=== PATIENT | female | born 1985 | race Caucasian/White ===

== ENCOUNTER 2018-09-13 09:41 | Emergency (ER) | payer OTHER, BC ==
[~2018-09-13] VITALS: Ht 170.2 cm; Wt 68.2 kg
[2018-09-13 09:49] VITALS: BP 118/82
[2018-09-13] MEDS ORDERED: ketorolac trometh inj. 60 MG/2 ML VIAL IM ONE (10:20)
[2018-09-13] MEDS ORDERED: ACET-3067 PO (10:21)
[2018-09-13] MEDS ORDERED: CYCL-1 PO (10:21)
== END 2018-09-13 11:12 | disposition home or self-care (01) ==
LOC: ER 09:41
DX: S13.9XXA Sprain of joints and ligaments of unspecified parts of neck, initial encounter (principal); Z88.1 Allergy status to other antibiotic agents; Z88.0 Allergy status to penicillin; V49.9XXA Car occupant (driver) (passenger) injured in unspecified traffic accident, initial encounter; Y93.89 Activity, other specified; Y92.488 Other paved roadways as the place of occurrence of the external cause; Y99.8 Other external cause status
CPT/HCPCS: 96372; 99283; J1885

== ENCOUNTER 2018-09-27 09:07 | Outpatient (CLI) | payer BC, OTHER ==
[~2018-09-27 09:07] MED LIST: CYCL-1 PO
[2018-09-27 10:28] LABS: BASOPHILS % (AUTO) 0.3 % (0-1); EOSINOPHILS # (AUTO) 0.1 X10'3 (0-0.9); EOSINOPHILS % (AUTO) 2.1 % (0-6); HEMATOCRIT 39.4 % (35.0-45.0); HEMOGLOBIN 13.4 g/dl (12.0-16.0); LYMPHOCYTES # (AUTO) 1.5 X10'3 (1.1-4.8); LYMPHOCYTES % (AUTO) 23.1 % (21-51); MEAN CORPUSCULAR HEMOGLOBIN 32.4 PG (27.0-31.0); MEAN CORPUSCULAR VOLUME 95.2 FL (78-98); MEAN PLATELET VOLUME 8.3 FL (7.4-10.4); MONOCYTES # (AUTO) 0.4 X10'3 (0-0.9); MONOCYTES % (AUTO) 5.7 % (2-12); NEUTROPHILS # (AUTO) 4.4 X10'3 (1.8-7.7); NEUTROPHILS % (AUTO) 68.8 % (42-75); PLATELET COUNT 216 X10'3 (140-440); RED BLOOD COUNT 4.14 X10'6 (4.20-5.60); WHITE BLOOD COUNT 6.4 X10'3 (4.5-11.0)
[2018-09-27 10:46] LABS: ALANINE AMINOTRANSFERASE 24 U/L (12-78); ALBUMIN/GLOBULIN RATIO 1.1 (1.1-1.5); ALKALINE PHOSPHATASE 51 IU/L (46-116); ANION GAP 7 (8-16); ASPARTATE AMINO TRANSFERASE 17 U/L (10-37); BILIRUBIN,TOTAL 0.6 MG/DL (0.1-1.0); BLOOD UREA NITROGEN 12 MG/DL (7-18); CALCIUM 8.8 MG/DL (8.5-10.1); CHLORIDE 106 MMOL/L (99-107); CHOL/HDL RATIO 2.5 (0.00-4.99); CHOLESTEROL 155 MG/DL (0-200); GLUCOSE 91 MG/DL (70-104); HDL CHOLESTEROL 62 MG/DL (35-60); LDL CHOLESTEROL 79 MG/DL (50-100); POTASSIUM 3.6 MMOL/L (3.5-5.1); SODIUM 140 MMOL/L (135-145); TOTAL CARBON DIOXIDE 26.7 MMOL/L (24-32); TOTAL PROTEIN 7.6 G/DL (6.4-8.2); TRIGLYCERIDES 67 MG/DL (20-135); eGFR 82 ML/MIN
== END 2018-09-27 23:59 | disposition home or self-care (01) ==
LOC: RAD 09:07
PROVIDERS: ATTEND Family Medicine
DX: M54.6 Pain in thoracic spine (principal); G43.909 Migraine, unspecified, not intractable, without status migrainosus; M41.82 Other forms of scoliosis, cervical region; Z76.89 Persons encountering health services in other specified circumstances; V89.2XXD Person injured in unspecified motor-vehicle accident, traffic, subsequent encounter
CPT/HCPCS: 36415; 72050; 72074; 80053; 80061; 84439; 84443; 85025

== ENCOUNTER → 2019-03-09 | Emergency (ER) | payer OTHER ==
[~2019-03-09] VITALS: Ht 167.6 cm; Wt 68.2 kg
[~2019-03-09] MED LIST changes: +LIDOcaine 1% 30ml preserv. free vial IJ STA; +METH500T6 PO; +ketorolac trometh inj. 60 MG/2 ML VIAL IM ONE
[2019-03-09 02:14] VITALS: BP 123/69
== END | disposition home or self-care (01) ==
LOC: EEVIPCON 00:18 → ER 00:18
DX: M54.2 Cervicalgia (principal); M62.838 Other muscle spasm; Z88.0 Allergy status to penicillin; Z88.1 Allergy status to other antibiotic agents; Z79.899 Other long term (current) drug therapy
CPT/HCPCS: 20552; 96372; 99284; J1885; J2001

== ENCOUNTER 2019-05-02 23:47 | Emergency (ER) | payer OTHER ==
[~2019-05-02] VITALS: Ht 167.6 cm; Wt 72.7 kg
[~2019-05-02 23:47] MED LIST changes: -LIDOcaine 1% 30ml preserv. free vial IJ STA; -ketorolac trometh inj. 60 MG/2 ML VIAL IM ONE
[2019-05-03] MEDS ORDERED: ketorolac trometh inj. 60 MG/2 ML VIAL IM ONE
[2019-05-03 00:30] VITALS: BP 130/94
== END 2019-05-03 00:31 | disposition home or self-care (01) ==
LOC: ER 23:48
DX: M54.6 Pain in thoracic spine (principal); G89.29 Other chronic pain; Z88.1 Allergy status to other antibiotic agents; Z88.0 Allergy status to penicillin; Z79.899 Other long term (current) drug therapy
CPT/HCPCS: 96372; 99283; J1885

== ENCOUNTER 2020-04-03 00:25 | Emergency (ER) | payer BC, OTHER ==
[~2020-04-03] VITALS: Ht 167.6 cm; Wt 70.0 kg
[2020-04-03 00:27] VITALS: BP 143/85
[2020-04-03] MEDS ORDERED: LIDOcaine 1% 30ml preserv. free vial IJ STA (00:35)
[2020-04-03] MEDS ORDERED: ketorolac tromethamine 15mg/ml inj. IM ONE (00:35)
== END 2020-04-03 01:01 | disposition home or self-care (01) ==
LOC: ER 00:25
DX: M25.512 Pain in left shoulder (principal); G89.29 Other chronic pain; Z88.8 Allergy status to other drugs, medicaments and biological substances; Z88.0 Allergy status to penicillin; Z79.899 Other long term (current) drug therapy
CPT/HCPCS: 20552; 96372; 99284; J1885

== ENCOUNTER 2020-04-29 06:39 | Outpatient (CLI) | payer BC ==
[2020-04-29 07:19] LABS: CLARITY,URINE SLIGHTLY CLOUDY (Clear); COLOR,URINE YELLOW (Yellow); GLUCOSE, URINE NEGATIVE (Neg); KETONES,URINE >=80 mg/dl (Neg); LEUKOCYTE ESTERASE ,URINE NEGATIVE (Neg); NITRITES, URINE NEGATIVE (Neg); OCCULT BLOOD,URINE SMALL (Neg); PH,URINE 5.5 (4.8-8.0); PROTEIN,URINE NEGATIVE (Neg); UROBILINOGEN,URINE 0.2 E.U/dL (0.2-1.0)
[2020-04-29 07:22] LABS: UA COLLECTION TYPE CLN CATCH MIDSTREAM
[2020-04-29 07:24] LABS: BASOPHILS % (AUTO) 0.4 % (0-1); EOSINOPHILS # (AUTO) 0.1 X10'3 (0-0.9); EOSINOPHILS % (AUTO) 1.5 % (0-6); HEMATOCRIT 37.7 % (35.0-45.0); LYMPHOCYTES # (AUTO) 1.6 X10'3 (1.1-4.8); LYMPHOCYTES % (AUTO) 22.5 % (21-51); MEAN CORPUSCULAR HEMOGLOBIN 32.8 PG (27.0-31.0); MEAN CORPUSCULAR HGB CONC 34.6 g/dL (33.0-36.5); MEAN CORPUSCULAR VOLUME 94.8 FL (78-98); MEAN PLATELET VOLUME 8.5 FL (7.4-10.4); MONOCYTES # (AUTO) 0.4 X10'3 (0-0.9); MONOCYTES % (AUTO) 5.7 % (2-12); NEUTROPHILS # (AUTO) 4.9 X10'3 (1.8-7.7); NEUTROPHILS % (AUTO) 69.9 % (42-75); PLATELET COUNT 222 X10'3 (140-440); RED BLOOD COUNT 3.97 X10'6 (4.20-5.60); RED CELL DISTRIBUTION WIDTH 12.2 % (11.5-14.5)
[2020-04-29 07:25] LABS: MUCUS STRANDS MODERATE /LPF (Neg); SQUAMOUS EPITHELIAL CELL,UR MANY /LPF (FEW)
[2020-04-29 07:26] LABS: BACTERIA,URINE 2+ /HPF (Neg); RBC,URINE 0-2 /HPF (0-2); WBC,URINE 0-4 /HPF (0-4)
[2020-04-29 07:46] LABS: ALANINE AMINOTRANSFERASE 27 U/L (12-78); ALBUMIN 4.1 G/DL (3.4-5.0); ALBUMIN/GLOBULIN RATIO 1.1 (1.1-1.5); ALKALINE PHOSPHATASE 50 IU/L (46-116); ANION GAP 10 (8-16); ASPARTATE AMINO TRANSFERASE 17 U/L (10-37); BILIRUBIN,TOTAL 0.6 MG/DL (0.1-1.0); BLOOD UREA NITROGEN 12 MG/DL (7-18); BUN/CREATININE RATIO 16.4 (6.6-38.0); CALCIUM 9.1 MG/DL (8.5-10.1); CHLORIDE 107 MMOL/L (99-107); CHOL/HDL RATIO 2.2 (0.00-4.99); CHOLESTEROL 140 MG/DL (0-200); CREATININE 0.73 MG/DL (0.40-0.90); GLUCOSE 86 MG/DL (70-104); HDL CHOLESTEROL 63 MG/DL (35-60); LDL CHOLESTEROL 67 MG/DL (50-100); POTASSIUM 3.6 MMOL/L (3.5-5.1); SODIUM 142 MMOL/L (135-145); TOTAL CARBON DIOXIDE 24.6 MMOL/L (24-32); TOTAL PROTEIN 7.8 G/DL (6.4-8.2); TRIGLYCERIDES 41 MG/DL (20-135); eGFR 90 ML/MIN
== END 2020-04-29 23:59 | disposition home or self-care (01) ==
LOC: LAB 06:39
PROVIDERS: ATTEND Family Medicine
DX: G43.909 Migraine, unspecified, not intractable, without status migrainosus (principal); M54.2 Cervicalgia
CPT/HCPCS: 36415; 80053; 80061; 81001; 84439; 84443; 85025

== ENCOUNTER 2021-06-20 04:13 | Emergency (ER) | payer BC ==
[~2021-06-20] VITALS: Ht 167.6 cm; Wt 69.8 kg
[~2021-06-20 04:13] MED LIST changes: +METH-797 PO; -METH500T6 PO
[2021-06-20 04:20] VITALS: BP 111/71
[2021-06-20] MEDS ORDERED: CARI-75 PO (04:39)
[2021-06-20] MEDS ORDERED: ketorolac trometh inj. 60 MG/2 ML VIAL IM ONE (04:40)
== END 2021-06-20 05:05 | disposition home or self-care (01) ==
LOC: ER 04:13
DX: M25.512 Pain in left shoulder (principal); G89.29 Other chronic pain; Z88.0 Allergy status to penicillin; Z88.1 Allergy status to other antibiotic agents; Z79.899 Other long term (current) drug therapy
CPT/HCPCS: 96372; 99283; J1885

== ENCOUNTER 2021-06-23 09:36 | Outpatient (CLI) | payer BC ==
[~2021-06-23 09:36] MED LIST changes: +CARI-75 PO
== END 2021-06-23 23:59 | disposition home or self-care (01) ==
LOC: RAD 09:36
PROVIDERS: ATTEND Family Medicine
DX: M25.512 Pain in left shoulder (principal)
CPT/HCPCS: 73030

== ENCOUNTER 2021-10-15 09:39 | Outpatient (CLI) | payer BC ==
[2021-10-15 10:10] LABS: CLARITY,URINE CLEAR (Clear); GLUCOSE, URINE NEGATIVE (Neg); KETONES,URINE NEGATIVE (Neg); LEUKOCYTE ESTERASE ,URINE NEGATIVE (Neg); NITRITES, URINE NEGATIVE (Neg); OCCULT BLOOD,URINE MODERATE (Neg); PROTEIN,URINE NEGATIVE (Neg); UROBILINOGEN,URINE 0.2 E.U/dL (0.2-1.0)
[2021-10-15 10:11] LABS: COLOR,URINE STRAW (Yellow); UA COLLECTION TYPE CLN CATCH MIDSTREAM
[2021-10-15 10:16] LABS: BASOPHILS % (AUTO) 0.4 % (0-1); EOSINOPHILS # (AUTO) 0.2 X10'3 (0-0.9); EOSINOPHILS % (AUTO) 2.8 % (0-6); HEMOGLOBIN 14.3 g/dl (12.0-16.0); LYMPHOCYTES # (AUTO) 1.7 X10'3 (1.1-4.8); LYMPHOCYTES % (AUTO) 27.2 % (21-51); MEAN CORPUSCULAR HEMOGLOBIN 33.2 PG (27.0-31.0); MEAN CORPUSCULAR HGB CONC 34.8 g/dL (33.0-36.5); MEAN CORPUSCULAR VOLUME 95.4 FL (78-98); MEAN PLATELET VOLUME 7.7 FL (7.4-10.4); MONOCYTES # (AUTO) 0.4 X10'3 (0-0.9); MONOCYTES % (AUTO) 6.5 % (2-12); NEUTROPHILS # (AUTO) 3.9 X10'3 (1.8-7.7); NEUTROPHILS % (AUTO) 63.1 % (42-75); PLATELET COUNT 225 X10'3 (140-440); RED BLOOD COUNT 4.29 X10'6 (4.20-5.60); WHITE BLOOD COUNT 6.2 X10'3 (4.5-11.0)
[2021-10-15 10:25] LABS: BACTERIA,URINE 3+ /HPF (Neg); SQUAMOUS EPITHELIAL CELL,UR MANY /LPF (FEW)
[2021-10-15 10:34] LABS: ALANINE AMINOTRANSFERASE 32 U/L (12-78); ALBUMIN 4.3 G/DL (3.4-5.0); ALBUMIN/GLOBULIN RATIO 1.1 (1.1-1.5); ALKALINE PHOSPHATASE 57 IU/L (46-116); ANION GAP 8 (8-16); ASPARTATE AMINO TRANSFERASE 18 U/L (10-37); BLOOD UREA NITROGEN 15 MG/DL (7-18); BUN/CREATININE RATIO 19.2 (6.6-38.0); CHLORIDE 106 MMOL/L (99-107); CREATININE 0.78 MG/DL (0.40-0.90); GLUCOSE 97 MG/DL (70-104); POTASSIUM 3.7 MMOL/L (3.5-5.1); SODIUM 140 MMOL/L (135-145); TOTAL CARBON DIOXIDE 26.2 MMOL/L (24-32); TOTAL PROTEIN 8.1 G/DL (6.4-8.2); eGFR 83 ML/MIN
[2021-10-15 10:53] LABS: HCG SERUM QL NEGATIVE
== END 2021-10-15 23:59 | disposition home or self-care (01) ==
LOC: LAB 09:39
PROVIDERS: ATTEND Physician Assistant
DX: R42 Dizziness and giddiness (principal); R11.0 Nausea
CPT/HCPCS: 36415; 80053; 81001; 84436; 84443; 84703; 85025

== ENCOUNTER 2022-04-13 12:29 | Emergency (ER) | payer BC ==
[~2022-04-13] VITALS: Ht 167.6 cm; Wt 80.0 kg
[2022-04-13 12:53] LABS: BASOPHILS % (AUTO) 0.2 % (0-1); EOSINOPHILS # (AUTO) 0.1 X10'3 (0-0.9); EOSINOPHILS % (AUTO) 0.6 % (0-6); HEMATOCRIT 36.1 % (35.0-45.0); HEMOGLOBIN 12.6 g/dl (12.0-16.0); LYMPHOCYTES # (AUTO) 0.3 X10'3 (1.1-4.8); LYMPHOCYTES % (AUTO) 2.2 % (21-51); MEAN CORPUSCULAR HEMOGLOBIN 33.4 PG (27.0-31.0); MEAN CORPUSCULAR VOLUME 95.4 FL (78-98); MEAN PLATELET VOLUME 7.9 FL (7.4-10.4); MONOCYTES # (AUTO) 0.4 X10'3 (0-0.9); NEUTROPHILS # (AUTO) 11.6 X10'3 (1.8-7.7); PLATELET COUNT 189 X10'3 (140-440); RED BLOOD COUNT 3.78 X10'6 (4.20-5.60); RED CELL DISTRIBUTION WIDTH 12.4 % (11.5-14.5); WHITE BLOOD COUNT 12.4 X10'3 (4.5-11.0)
[2022-04-13] MEDS ORDERED: normal saline 1000ML IV soln IVB ONE (13:10)
[2022-04-13 13:15] LABS: ALANINE AMINOTRANSFERASE 25 U/L (12-78); ALBUMIN/GLOBULIN RATIO 0.8 (1.1-1.5); ALKALINE PHOSPHATASE 59 IU/L (46-116); ANION GAP 7 (8-16); ASPARTATE AMINO TRANSFERASE 22 U/L (10-37); BILIRUBIN,TOTAL 0.6 MG/DL (0.1-1.0); BLOOD UREA NITROGEN 11 MG/DL (7-18); BUN/CREATININE RATIO 15.9 (6.6-38.0); CALCIUM 9.1 MG/DL (8.5-10.1); CHLORIDE 103 MMOL/L (99-107); CREATININE 0.69 MG/DL (0.40-0.90); GLUCOSE 123 MG/DL (70-104); POTASSIUM 3.7 MMOL/L (3.5-5.1); SODIUM 135 MMOL/L (135-145); TOTAL CARBON DIOXIDE 24.6 MMOL/L (24-32); TOTAL PROTEIN 6.8 G/DL (6.4-8.2); eGFR > 90 ML/MIN
[2022-04-13 13:24] LABS: CLARITY,URINE SLIGHTLY CLOUDY (Clear); COLOR,URINE YELLOW (Yellow); GLUCOSE, URINE NEGATIVE (Neg); KETONES,URINE NEGATIVE (Neg); LEUKOCYTE ESTERASE ,URINE TRACE (Neg); NITRITES, URINE NEGATIVE (Neg); OCCULT BLOOD,URINE NEGATIVE (Neg); PROTEIN,URINE NEGATIVE (Neg); URINE HCG POSITIVE (NEG); UROBILINOGEN,URINE 0.2 E.U/dL (0.2-1.0)
[2022-04-13 13:26] LABS: UA COLLECTION TYPE CLN CATCH MIDSTREAM
[2022-04-13 13:33] LABS: RBC,URINE 0-2 /HPF (0-2)
[2022-04-13 13:34] LABS: BACTERIA,URINE 3+ /HPF (Neg); HYALINE CASTS 0-3 /LPF (NEGATIVE); MUCUS STRANDS NONE SEEN /LPF (Neg); SQUAMOUS EPITHELIAL CELL,UR MANY /LPF (FEW)
[2022-04-13] MEDS ORDERED: ONDA4TAB12 PO (15:17)
[2022-04-13 15:45] VITALS: BP 100/67
== END 2022-04-13 15:47 | disposition home or self-care (01) ==
LOC: ER 12:30
DX: O26.892 Other specified pregnancy related conditions, second trimester (principal); Z20.822 Contact with and (suspected) exposure to COVID-19; O23.42 Unspecified infection of urinary tract in pregnancy, second trimester; Z3A.20 20 weeks gestation of pregnancy; J06.9 Acute upper respiratory infection, unspecified; R19.7 Diarrhea, unspecified; R11.0 Nausea; G89.29 Other chronic pain; M54.50 Low back pain, unspecified; Z88.0 Allergy status to penicillin; Z88.1 Allergy status to other antibiotic agents
CPT/HCPCS: 36415; 80053; 81001; 81025; 85025; 87502; 87503; 87635; 96360; 99283; C9803; J7030

== ENCOUNTER 2022-06-05 19:11 | Emergency (ER) | payer BC ==
[~2022-06-05] VITALS: Ht 167.6 cm; Wt 82.7 kg
[~2022-06-05 19:11] MED LIST changes: +ONDA4TAB12 PO
--- NOTE | 2022-06-05 19:46 | NUR ---
CHARGE NURSE NOTIFIED OF GENERAL ASSESSMENT FOR REVIEW.
[2022-06-05 20:33] LABS: COLOR,URINE YELLOW (Yellow); GLUCOSE, URINE NEGATIVE (Neg); KETONES,URINE NEGATIVE (Neg); LEUKOCYTE ESTERASE ,URINE SMALL (Neg); NITRITES, URINE NEGATIVE (Neg); OCCULT BLOOD,URINE TRACE-INTACT (Neg); PH,URINE 6.5 (4.8-8.0); PROTEIN,URINE NEGATIVE (Neg); UROBILINOGEN,URINE 0.2 E.U/dL (0.2-1.0)
[2022-06-05 20:38] LABS: UA COLLECTION TYPE CLN CATCH MIDSTREAM
[2022-06-05 20:39] LABS: BACTERIA,URINE 2+ /HPF (Neg); CLARITY,URINE SLIGHTLY CLOUDY (Clear); RBC,URINE NONE SEEN /HPF (0-2); SQUAMOUS EPITHELIAL CELL,UR MODERATE /LPF (FEW)
[2022-06-05 21:27] VITALS: BP 114/69
== END 2022-06-05 21:32 | disposition home or self-care (01) ==
LOC: ER 19:12
DX: O46.92 Antepartum hemorrhage, unspecified, second trimester (principal); G89.29 Other chronic pain; Z3A.28 28 weeks gestation of pregnancy; Z87.440 Personal history of urinary (tract) infections; Z88.0 Allergy status to penicillin; Z88.8 Allergy status to other drugs, medicaments and biological substances; Z79.899 Other long term (current) drug therapy
CPT/HCPCS: 76805; 81001; 87088; 99284

== ENCOUNTER 2025-05-31 14:24 | Emergency (ER) | payer BC ==
[~2025-05-31] VITALS: Ht 167.6 cm; Wt 79.0 kg
[~2025-05-31 14:24] MED LIST changes: +ONDA-243 PO; -ONDA4TAB12 PO
[2025-05-31 14:25] VITALS: BP 139/80; PULSE 59; O2SAT 100
[2025-05-31] MEDS: ondansetron 4mg rapidly disintigrating tab PO ONE (15:40)
[2025-05-31 15:42] VITALS: RESP 16
[2025-05-31] MEDS: ketorolac trometh 15mg/ml vial 15 MG/ML ML IM ONE (15:42)
--- NOTE | 2025-05-31 16:56 | Physician Documentation ---
History of Present Illness ~ Chief Complaint: Headache Stated Complaint: HEADACHE Time Seen by MD: 14:39 OK to notify your PCP?: Yes Primary Medical Doctor: Cole De Jesus Source: patient Mode of Arrival: POV HPI Reports having a migraine with nausea for the past 4 hours. She reports that this pain is in her forehead which is her usual location. She has a history of migraines and usually is able to take Tylenol and/or ibuprofen as soon as the headache starts in his usually able to terminate this headache. Unfortunately she was out shopping today when the headache came on and she took Tylenol but thinks it was too late. She reports having some photophobia, no vomiting. This is a feels like her usual migraine. Medication Reconciliation Allergies: Coded Allergies: Cephalosporins (Verified Allergy, Unknown, 09/13/18) Penicillins (Verified Allergy, Unknown, 09/13/18) nitrofurantoin (Verified Allergy, Unknown, 06/05/22) Uncoded Allergies: ZPAK (Allergy, Intermediate, RASH, 03/09/19) Scheduled Cyclobenzaprine* (Cyclobenzaprine*), 1 TAB PO TID ONDANSETRON ODT 4mg tablet (Ondansetron Odt), 1 TABLET PO Q6H Scheduled PRN Carisoprodol (Soma), 1 TAB PO DAILY PRN for muscle spasms Methocarbamol (Methocarbamol), 1 TAB PO Q8H PRN for muscle spasms Past Medical History Past Medical History: Migraine, UTI, Chronic Back Pain Past Surgical History: noncontributory Alcohol Use: None Drug Use: none Lives In: Home Occupation: employed Review of Systems All Other Systems at this time: Reviewed and Negative Physical Exam Vital Signs: RN Vital Signs have been reviewed: Yes, Temperature: 98.3, Source: Oral, Heart Rate: 59, Respiratory Rate: 16, BP: 139/80, Pulse Oximetry: 100, Weight: 79.000 Oxygen Flow Rate: 0 Pulse Oximetry Reflects: adequate oxygenation Physical Exam General: Alert, no distress. HEENT: No injection, moist mucous membranes. Neck: Full range of motion. Respiratory: No respiratory distress, equal chest rise and fall. Lung sounds clear Chest: No accessory muscle use. Cardiovascular: Regular rate and rhythm. Gastrointestinal: Nondistended. Extremities: Normal range of motion, no deformity. Neurologic: Oriented x4. Psychiatric: Normal mood and affect. Skin: Normal color, warm and dry. Progress Results/Orders Reviewed/noted all lab results: Yes Results/Orders Completed Orders - ALEXANDRIA ABBOTT Ondansetron Disint. Tablet (Zofran Odt T (05/31/25 14:40) Metoclopramide Tablet (Reglan Tablet) (05/31/25 14:40) Diphenhydramine Capsule (Benadryl Capsul (05/31/25 14:40) Ketorolac Trometh 15mg/Ml Vial (Toradol (05/31/25 14:40) Medications Received in ER Medications (Trade) Dose Ordered Sig/Ivon Route PRN Reason Start Time Stop Time Status Last Admin Dose Admin (Zofran ODT tablet) 4 mg ONCE ONCE PO 05/31/25 14:40 05/31/25 14:41 DC 05/31/25 15:40 4 MG (Reglan tablet) 10 mg ONCE ONCE PO 05/31/25 14:40 05/31/25 14:41 DC 05/31/25 14:40 10 MG (Benadryl capsule) 25 mg ONCE ONCE PO 05/31/25 14:40 05/31/25 14:41 DC 05/31/25 15:40 25 MG (Toradol injection) 15 mg ONCE ONCE IM 05/31/25 14:40 05/31/25 14:41 DC 05/31/25 15:42 15 MG Vital Signs 05/31/25 05/31/25 05/31/25 14:25 15:42 17:05 Temp 98.3 98.3 Pulse 59 Resp 16 16 B/P (MAP) 139/80 Pulse Ox 100 O2 Flow Rate 0 Medical Decision Making Additional information obtaine: old records, family Findings Worse with migraine symptoms. Has a history of migraines and states this feels similar to her usual migraine. No concerning symptoms otherwise. Treated with Toradol injection, Benadryl, Reglan, Zofran with relief. He has reports of the headache has fully resolve and she is ready to be discharge. Differential Dx:Considerations: Include: [place]CHO[place]-Migraine, [place]-Hypertensive, CVA, Meningitis, Temporal arteritis, Trigeminal neuralgia Departure Disposition: 01 HOME / SELF CARE / HOMELESS Impression: Primary Impression: Migraine Condition: Stable Discharge Instructions: Migraine Headache Additional Instructions: Please speak with your PCP about carrying possible migraine rescue medication if needed. Return back here for any new or worsening symptoms. Referrals: NO PRIMARY CARE PROVIDER (PCP) Education Educated: Patient Educated regarding: diagnosis, treatment, prognosis, need for follow up Additional Comment Medical Screen Exam This patient recieved a medical screening examination. After reviewing the individual's medical complaints with presenting symptoms and performing an appropriate physical examination, it was determined that no immediate life- threatening emergency medical condition is present. This individual is also not a women having contractions. Signature Scribe Signature: . Attestation: Scribed for Alexandria Abbott Bicycle Racer by Alexandria Suarez NP . 05/31/25 17:50 Parts of this note were created using [employer] voice recognition software program. While efforts were made to correct any mistakes made by this voice rec ognition software program, nonsensical phrases may remain in this note. In addition, there may be errors and syntax, grammar, content and spelling. ALEXANDRIA ABBOTT FRONT END ASSISTANT May 31, 2025 16:56
[2025-05-31 17:05] VITALS: TEMP 98.3
== END 2025-05-31 17:06 | disposition home or self-care (01) ==
LOC: ER 14:24
DX: G43.909 Migraine, unspecified, not intractable, without status migrainosus (principal); G89.29 Other chronic pain; Z87.440 Personal history of urinary (tract) infections; Z88.0 Allergy status to penicillin; Z88.1 Allergy status to other antibiotic agents; Z79.899 Other long term (current) drug therapy
CPT/HCPCS: 96372; 99284; J1885; Q0163